=== PATIENT | female | born 1995 | race Caucasian/White ===

== ENCOUNTER → 2018-03-22 14:01 | Outpatient (CLI) | payer OTHER, SELFPAY ==
[2018-03-22 18:37] LABS: Chlamydia Trachomatis by PCR POSITIVE (Negative); Neisserai gonorrhoeae by PCR Negative (Negative); Probe Check PASS
== END ==
PROVIDERS: Visit Provider Obstetrics & Gynecology
DX: Z11.3 Encounter for screening for infections with a predominantly sexual mode of transmission (principal)
CPT/HCPCS: 87491; 87591

== ENCOUNTER → 2021-07-09 | Outpatient (CLI) | payer OTHER, SELFPAY ==
[2021-07-12 00:07] LABS: Chlamydia By Nucleic Acid AMP Negative (Negative)
[2021-07-12 13:41] LABS: Gonococcus By Nucleic Acid AMP Negative (Negative)
== END | disposition home or self-care (01) ==
LOC: LABSPEC 17:12
PROVIDERS: PCP Family Medicine; Visit Provider Obstetrics & Gynecology
DX: Z11.3 Encounter for screening for infections with a predominantly sexual mode of transmission (principal)
CPT/HCPCS: 87491; 87591

== ENCOUNTER 2021-12-04 16:44 | Outpatient (CLI) | payer OTHER, SELFPAY ==
[2021-12-04 17:40] LABS: Hematocrit 39.9 % (37-47); Hemoglobin 12.9 g/dL (12.0-15.0); Mean Corp Hgb Conc 32.3 g/dL (32-36); Mean Corpuscular Hgb 29.8 pg (27.0-32.0); Mean Corpuscular Volume 92.1 fL (81-99); Platelet Count 374 K/mm3 (150-450); RBC Distribution Width CV 13.9 % (11.6-14.6); RBC Distribution Width SD 47.6 fl (35.1-43.9); Red Blood Count 4.33 M/mm3 (4.2-5.4)
[2021-12-04 18:10] LABS: Erythrocyte Sedimentation Rate 8 mm/hr (0-30)
[2021-12-04 18:27] LABS: CRP < 2.90 mg/L (0.0-3.0)
[2021-12-10 12:00] LABS: Endomysial Antibody IgA Negative (Negative)
[2021-12-10 15:50] LABS: Immunoglobulin A 130 mg/dL (87-352); t-Transglutaminase IgA <2 U/mL (0-3)
== END 2021-12-04 23:59 | disposition home or self-care (01) ==
LOC: MTLAB 16:46
PROVIDERS: PCP Family Medicine; Referring Provider Internal Medicine Gastroenterology; Visit Provider Internal Medicine Gastroenterology
DX: K62.5 Hemorrhage of anus and rectum (principal)
CPT/HCPCS: 36415; 82784; 83516; 85027; 85652; 86140; 86255

== ENCOUNTER → 2022-01-14 | Outpatient (CLI) | payer OTHER, SELFPAY ==
[2022-01-16 22:07] LABS: Chlamydia By Nucleic Acid AMP Negative (Negative)
[2022-01-17 11:17] LABS: Gonococcus By Nucleic Acid AMP Negative (Negative)
== END | disposition home or self-care (01) ==
LOC: LABSPEC 17:12
PROVIDERS: PCP Family Medicine; Visit Provider Obstetrics & Gynecology
DX: Z11.3 Encounter for screening for infections with a predominantly sexual mode of transmission (principal)
CPT/HCPCS: 87491; 87591

== ENCOUNTER → 2022-07-08 | Outpatient (CLI) | payer OTHER, SELFPAY ==
[2022-07-10 22:07] LABS: Chlamydia By Nucleic Acid AMP Negative (Negative)
[2022-07-11 15:11] LABS: Gonococcus By Nucleic Acid AMP Negative (Negative)
[2022-07-15 15:12] LABS: HPV Reflexed? NOT INDICATED
== END | disposition home or self-care (01) ==
LOC: LABSPEC 15:48
PROVIDERS: PCP Family Medicine; Visit Provider Obstetrics & Gynecology
DX: Z12.4 Encounter for screening for malignant neoplasm of cervix (principal); Z11.3 Encounter for screening for infections with a predominantly sexual mode of transmission
CPT/HCPCS: 87491; 87591; 88175; G0145